=== PATIENT | female | born 1945 | race Caucasian/White ===

== ENCOUNTER 2024-04-08 12:33 | Emergency (ER) | payer MEDICARE, SELFPAY ==
[2024-04-08] VITALS (23 sets, daily range): BP systolic 126–176; BP diastolic 58–77; PULSE 69–95; RESP 16–23; TEMP 36.5–36.6; O2SAT 96–99
--- NOTE | 2024-04-08 12:45 | EKG_ITS ---
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
[2024-04-08 12:54] LABS: Add Manual Diff / Slide Review NO; Basophils Absolute Auto 0 /uL (0-100); Basophils Percent Auto 0.3 % (0-2); Eosinophils Absolute Auto 100 /uL (0-450); Eosinophils Percent Auto 0.7 % (2-4); Hematocrit 39.6 % (36-46); Hemoglobin 13.3 g/dL (12.0-16.0); Lymphocytes Absolute Auto 1200 /uL (1100-4500); Lymphocytes Percent Auto 13.8 % (25-40); Mean Corpuscular HGB Conc 33.6 % (30-36); Mean Corpuscular Hemoglobin 31.5 PG (26-34); Mean Corpuscular Volume 93.7 fL (80-100); Monocytes Absolute Auto 400 /uL (0-900); Monocytes Percent Auto 4.8 % (3-14); Neutrophils Absolute Auto 7200 /uL (1500-7000); Neutrophils Percent Auto 80.4 % (50-75); Platelet Count 246 X10^3/uL (150-400); Red Blood Cell Count 4.23 X10^6/uL (4.0-5.2); Red Cell Distribution Width 13.4 % (11.6-14.8)
[2024-04-08 12:58] LABS: Alanine Aminotransferase 21 IU/L (<35); Albumin 3.5 g/dL (3.5-5.0); Albumin Globulin Ratio 1.6 (1.0-2.8); Alkaline Phosphatase 64 U/L (38-126); Aspartate Aminotransferase 34 IU/L (14-36); BUN Creatinine Ratio 11.7 (6-22); Bilirubin Total 0.7 mg/dL (0.2-1.3); Blood Urea Nitrogen 9 mg/dL (7-17); Carbon Dioxide 21 mmol/L (22-32); Chloride 99 mmol/L (98-107); Estimated Glomerular Filt Rate > 60 mL/min (>60); Globulin 2.2 g/dL (1.7-4.1); Glucose 107 mg/dL (80-110); HEMOLYSIS < 15 (0-50); Lipase 166 U/L (23-300); Potassium 3.9 mmol/L (3.4-5.1); Sodium 129 mmol/L (137-145); Total Protein 5.7 g/dL (6.3-8.2)
[2024-04-08 14:18] LABS: Urine Volume 10mL (spun)
[2024-04-08 14:23] LABS: Bacteria Urine None Seen; Culture Indicated Urine Specimen Cultured; RBC Urine 0-1/HPF (0-5/HPF); Squamous Epithelial Cell Urine 0-1 /HPF (0-5/HPF); WBC Urine 1-5/HPF (0-5/HPF)
--- NOTE | 2024-04-08 18:31 | ED_ITS ---
HPI - Nausea/Vomiting/Diarrhea General Chief complaint: Nausea/Vomiting/Diarrhea Stated complaint: Diarrhea Time Seen by Provider: 04/08/24 17:56 Source: patient Mode of arrival: Ambulatory History of Present Illness HPI Narrative: 78-year-old female presents by EMS from home for 2 weeks of diarrhea. Triage note states abdominal pain, however patient states that she only had abdominal pain at the very beginning of symptoms and has had none in the last several weeks. She tried Pepto-Bismol that did not really help her symptoms. She saw her doctor who recommended Imodium for her diarrhea. Patient states that she took a dose of Imodium earlier this morning, and when she got up to take a shower she felt like her legs were very weak and she could not get up. She was concerned that the weakness is a side effect of the Imodium. Patient also reports concern at low appetite over the last several weeks. She states that anything she eats almost immediately leaves her system via diarrhea. She has been trying to stay hydrated by drinking Pedialyte and ensures. Related Data Allergies Allergy/AdvReac Type Severity Reaction Status Date / Time epinephrine AdvReac Intermediate Palpitation Verified 04/07/24 12:55 s Patient History Social History Smoking Status: Never smoker Smoking Status: Never smoker alcohol intake frequency: other Substance Use Type: does not use Exam Initial Vital Signs Initial Vital Signs: Vital Signs Temperature 97.7 F 04/08/24 12:37 Pulse Rate 77 04/08/24 12:37 Respiratory Rate 16 04/08/24 12:37 Blood Pressure 176/77 H 04/08/24 12:37 Pulse Oximetry 97 04/08/24 12:37 Oxygen Delivery Method Room Air 04/08/24 12:37 Const: Awake, alert, no acute distress, nontoxic appearing Cardiac: regular rate, regular rhythm RESP: unlabored, clear bilaterally, no wheezing GI: Soft, nontender, nondistended, no rebound, no guarding Skin: Warm, Dry, intact, no rashes Neuro: AO x3, CN II-XII grossly intact, moves all extremities Course Orders Ordered: Discontinued Medications Sodium Chloride (Normal Saline 0.9%) 1,000 mls @ 1,000 mls/hr IV BOLUS ONE Stop: 04/08/24 19:05 Last Admin: 04/08/24 18:56 Dose: Not Given Documented By: KEYA Ondansetron HCl (Ondansetron 4 Mg/2 Ml Inj) 4 mg IV NOW PRN PRN Reason: Nausea And Vomiting Ondansetron HCl (Ondansetron 4 Mg Odt) 4 mg PO NOW PRN PRN Reason: Nausea And Vomiting Vital Signs Vital signs: Vital Signs - 8 hr 04/08/24 16:30 04/08/24 16:30 04/08/24 16:58 Temperature Pulse Rate 81 84 Respiratory Rate 21 Blood Pressure 144/66 H Pulse Oximetry 97 97 Oxygen Delivery Method 04/08/24 16:58 04/08/24 17:00 04/08/24 17:00 Temperature Pulse Rate 82 Respiratory Rate Blood Pressure 137/63 140/66 Pulse Oximetry 98 Oxygen Delivery Method 04/08/24 17:30 04/08/24 17:30 04/08/24 18:00 Temperature Pulse Rate 76 77 Respiratory Rate Blood Pressure 134/60 Pulse Oximetry 96 97 Oxygen Delivery Method 04/08/24 18:00 04/08/24 18:30 04/08/24 18:30 Temperature Pulse Rate 80 Respiratory Rate 18 Blood Pressure 126/59 L 138/62 Pulse Oximetry 97 Oxygen Delivery Method 04/08/24 19:00 04/08/24 19:01 04/08/24 19:01 Temperature Pulse Rate 84 84 Respiratory Rate Blood Pressure 152/65 H Pulse Oximetry Oxygen Delivery Method 04/08/24 19:06 04/08/24 19:06 04/08/24 19:36 Temperature 97.9 F Pulse Rate 95 H 83 Respiratory Rate 23 20 Blood Pressure 157/67 H 144/63 H Pulse Oximetry 99 97 Oxygen Delivery Method Room Air MDM - Nausea/Vomiting/Diarrhea Differential Diagnosis Differential diagnosis: Likely traveler's diarrhea, food poisoning and gastroenteritis Lab Data 04/08/24 12:35 04/08/24 12:35 Labs: Lab Results 04/08/24 04/08/24 Range/Units 12:35 14:10 WBC 9.0 (4.5-11.0) X10^3/uL RBC 4.23 (4.0-5.2) X10^6/uL Hgb 13.3 (12.0-16.0) g/dL Hct 39.6 (36-46) % MCV 93.7 (80-100) fL MCH 31.5 (26-34) PG MCHC 33.6 (30-36) % RDW 13.4 (11.6-14.8) % Plt Count 246 (150-400) X10^3/uL Neut % (Auto) 80.4 H (50-75) % Lymph % (Auto) 13.8 L (25-40) % [place] % (Auto) 4.8 (3-14) % Eos % (Auto) 0.7 L (2-4) % Baso % (Auto) 0.3 (0-2) % Neut # (Auto) 7200 H (3645-6669) /uL Lymph # (Auto) 1200 (0531-2135) /uL [place] # (Auto) 400 (0-900) /uL Eos # (Auto) 100 (0-450) /uL Baso # (Auto) 0 (0-100) /uL Sodium 129 L (137-145) mmol/L Potassium 3.9 (3.4-5.1) mmol/L Chloride 99 (98-107) mmol/L Carbon Dioxide 21 L (22-32) mmol/L BUN 9 (7-17) mg/dL Creatinine 0.77 (0.52-1.04) mg/dL Estimated GFR > 60 (>60) mL/min BUN/Creatinine Ratio 11.7 (6-22) Glucose 107 (80-110) mg/dL Calcium 9.0 (8.4-10.2) mg/dL Total Bilirubin 0.7 (0.2-1.3) mg/dL AST 34 (14-36) IU/L ALT 21 (<35) IU/L Alkaline Phosphatase 64 (38-126) U/L Total Protein 5.7 L (6.3-8.2) g/dL Albumin 3.5 (3.5-5.0) g/dL Globulin 2.2 (1.7-4.1) g/dL Albumin/Globulin Ratio 1.6 (1.0-2.8) Lipase 166 (23-300) U/L Urine RBC 0-1/hpf (0-5/HPF) Urine WBC 1-5/hpf (0-5/HPF) Ur Squamous Epith Cells 0-1 /hpf (0-5/HPF) Urine Bacteria None seen (None) Ur Culture Indicated? Specimen cultured Vol Urine Centrifuged 10ml (spun) Urine Dip Bedside Urine Glucose Negative Bedside Urine Bilirubin - Negative Bedside Urine Ketone +++ 80 Urine Specific [place] 1.010 Bedside Urine Occult Blood + Bedside Urine pH 6.0 Bedside Urine Protein - Negative Bedside Urine Nitrite - Negative Bedside Urine Leukocytes +/- 15 Esterase MDM Narrative Medical decision making narrative: 2 weeks of nonbloody diarrhea with reported lower extremity weakness this afternoon after taking immodium. On my exam patient had been in the ED for 5.5 hours. Abdomen soft, absolutely no tenderness to light or deep palpation. Patient had no diarrhea the entire time. She had eaten, drank fluids, and was up to the bathroom unassisted by nursing staff. Patient was given IV fluids by EMS. Laboratory work shows sodium of 129, other electrolytes within normal limits. No previous values for comparison. With normal abdominal exam, otherwise reassuring labs, and improvement of symptoms in the emergency department patient should be safe for discharge home. Uncertain what caused patient's weakness in the shower, perhaps a reaction to hot water, unlikely to be side effect of Imodium. Patient counseled on lab findings, recommended primary and GI follow up if she continues to experience diarrhea. Patient asked if she would like to provide a stool sample prior to discharge, she states that ?I could not given one even if I tried?. Discharge Plan Departure Patient Disposition: Home Clinical Impression: Diarrhea, Low serum sodium Instructions: DI for Dehydration -- Adult, DI for Diarrhea and Traveler's Diarrhea -- Adult Activity Restrictions/Additional Instructions: Your laboratory work today showed a slightly low sodium, which should be at least partially corrected with the fluids given today and the food you eat. If you continued to have diarrhea please talk to your primary care doctor. A GI phone number referral has also been provided, please call for an appointment. Make sure that you stay hydrated and drink plenty of fluids such as Gatorade, Pedialyte, or other liquids with electrolytes. I am not certain that the Imodium caused her symptoms today, but if you try the Imodium again and have the same symptoms then you should no longer take this medication. Referrals: Demario Clark MD [Non-Staff] - Miscellaneous,MD Favian [Primary Care Provider] - Stand Alone Forms: Patient Portal/API/Survey
== END 2024-04-08 19:37 | disposition home or self-care (01) ==
PROVIDERS: Emergency Medicine; Emergency Provider Emergency Medicine
DX: R19.7 Diarrhea, unspecified (principal); E87.1 Hypo-osmolality and hyponatremia
CPT/HCPCS: 80053; 81003; 81015; 83690; 85025; 87077; 87086; 87186; 93005; 93010; 99282; 99284

== ENCOUNTER → 2024-04-11 14:40 | Outpatient (CLI) | payer MEDICARE, SELFPAY ==
[2024-04-11 21:19] LABS: Clostridium Difficile Tox PCR Negative for C. diff (Negative)
== END ==
PROVIDERS: Referring Provider Nurse Practitioner Family; Visit Provider Nurse Practitioner Family
DX: R19.7 Diarrhea, unspecified (principal)
CPT/HCPCS: 87205; 87329; 87493